=== PATIENT | male | born 1995 | race American Indian/Alaskan Native ===

== ENCOUNTER 2018-01-05 15:56 | Outpatient (CLI) | payer MEDICAID ==
--- NOTE | 2018-01-05 18:45 | XRay Report ---
FINAL REPORT EXAM: XR CHEST ROUTINE 2V HISTORY: DUCHENNE MUSCULAR DYSTROPHY, LEUKOCYTOSIS TECHNIQUE: PA and lateral views of the chest PRIORS: None. FINDINGS: Lines, tubes, and devices: N/A Lungs and pleura: Trachea is normal in position. Lungs are clear of infiltrate, pleural effusion, vascular congestion, or pneumothorax. Cardiomediastinal silhouette: Cardiac and mediastinal silhouettes are unremarkable. Other: Bony structures show marked scoliosis of the spine the with subsequent distortion of the bony thorax. IMPRESSION: No acute cardiopulmonary process seen.
== END 2018-01-05 15:57 | disposition home or self-care (01) ==
LOC: XRAY 15:56
PROVIDERS: ATTEND Internal Medicine
DX: G71.0 Muscular dystrophy (principal); D72.829 Elevated white blood cell count, unspecified; Q76.49 Other congenital malformations of spine, not associated with scoliosis
CPT/HCPCS: 71046